=== PATIENT | female | born 1985 | race Hispanic/Latino ===

== ENCOUNTER 2018-04-07 23:10 | Inpatient (IN) | payer BC ==
[2018-04-07] MEDS ORDERED: AMPicillin 2 GM in Sodium Chloride 0.9% 100 ML IVPB ONE (23:15)
[2018-04-07 23:26] VITALS: BMI 25.7
[2018-04-08] MEDS ORDERED: AMPicillin 2 GM in Sodium Chloride 0.9% 100 ML IVPB ONE (00:32)
[2018-04-08] MEDS ORDERED: Oxycodone/Acetaminophen 5/325 mg Tab PO PRN ×2 (00:32→03:10)
[2018-04-08 01:13] LABS: BASO # 0.1 K/uL (0.0-0.2); BASO % 0.3 % (0.0-2.0); EOS % 0.2 % (0.0-4.0); HEMOGLOBIN 13.4 g/dL (12.0-16.0); LYMPH # 1.8 K/uL (1.0-4.3); LYMPH % 10.5 % (20.0-40.0); MEAN CELL VOLUME 94.4 fl (81.0-99.0); MEAN CORPUSCULAR HEMOGLOBIN 33.5 pg (27.0-31.0); MEAN CORPUSCULAR HGB CONC 35.5 g/dL (33.0-37.0); MEAN PLATELET VOLUME 9.4 fl (7.2-11.7); MONO # 1.1 K/uL (0.0-0.8); MONO % 6.1 % (0.0-10.0); NEUT # 14.2 K/uL (1.8-7.0); NEUT % 82.9 % (50.0-75.0); NRBC % 0.1 % (0.0-0.0); RBC 3.99 Mil/uL (3.80-5.20); RED CELL DISTRIBUTION WIDTH 13.1 % (11.5-14.5); WHITE BLOOD COUNT 17.1 K/uL (4.8-10.8)
[2018-04-08 03:04] VITALS: O2SAT 99
[2018-04-08 07:14] LABS: BASO % 0.1 % (0.0-2.0); HEMOGLOBIN 11.5 g/dL (12.0-16.0); LYMPH % 6.3 % (20.0-40.0); MEAN CELL VOLUME 93.4 fl (81.0-99.0); MEAN CORPUSCULAR HEMOGLOBIN 33.3 pg (27.0-31.0); MEAN CORPUSCULAR HGB CONC 35.7 g/dL (33.0-37.0); MEAN PLATELET VOLUME 9.2 fl (7.2-11.7); MONO # 0.9 K/uL (0.0-0.8); MONO % 5.8 % (0.0-10.0); NEUT # 14.2 K/uL (1.8-7.0); NEUT % 87.8 % (50.0-75.0); PLATELET COUNT 212 K/uL (130-400); RBC 3.44 Mil/uL (3.80-5.20); RED CELL DISTRIBUTION WIDTH 12.8 % (11.5-14.5); WHITE BLOOD COUNT 16.2 K/uL (4.8-10.8)
[2018-04-08 10:24] LABS: LYMPHOCYTE 6 % (20-50); MONOCYTE 6 % (0-10); NEUTROPHIL 88 % (42-75); PLATELET ESTIMATE NORMAL (NORMAL); TOTAL CELLS COUNTED 100
[2018-04-08 10:35] LABS: LARGE PLATELETS PRESENT
[2018-04-08 10:36] LABS: GIANT PLATELETS PRESENT
[2018-04-08 10:37] LABS: TOXIC GRANULATION PRESENT
--- NOTE | 2018-04-08 14:03 | OBHP ---
Datetime: 04/07/2018 23:00 IP Adm Impression: Term, intrauterine ; Active labor; Intact Membranes IP Admit Plan: Admit to unit; Initiate labor protocol Admit Comment, IP Provider: 32 yo , at 41+0 EGA by certain LMP. NKDA, GBS positive. HIV/RPR?Hep B negative, maternal blood type O negative. HPI: Patient began having uterine contractions around 1730 on 04/07/18 with increasing intensity an d frequency. Patient denies loss of fluid, reports bloody show, good movement. Pelvic Type - PN: Adequate Extremities - PN: Normal Abdomen - PN: Normal Back - PN: Normal Breast - PN: Normal Lungs - PN: Normal Heart - PN: Normal Thyroid - PN: Normal Neurologic - PN: Normal HEENT - PN: Normal General - PN: Normal Amniotic Fluid Color, Provider: Meconium, Light Membranes, Provider: Ruptured Gestation - Est Wks by US: 41.0 Vital Signs Provider: Reviewed; Within Normal Limits IP Chief Complaint: Uterine contractions FHR Category Provider Fetus A: Category I Dilatation, Provider: 10 Effacement, Provider: 100 Station, Provider: 1 Genitourinary Exam: Normal DTRs - PN: Normal
--- NOTE | 2018-04-08 14:11 | OBDS ---
DELIVERY PERSONNEL Nurse Corporate Recruiter Certified: Rosy Roque CNM (Annotations: Data stored by CPN on behalf of user) Batch Dumper: Alexandra RN, Ebony RN MATERNAL INFORMATION Delivery Anesthesia: Local Medications in Delivery: None Estimated Blood Loss (ml): 250 Placenta Cultured: Placenta Released to patient , release form signed Maternal Complications: Precipitous Labor (<3hrs) (Annotations: Data stored by CPN on behalf of user ) Provider Comments: Efficient labor at home, presented to [facility] fully dilated, with SROM upon admissio n, light mec. viable baby girl @ 23:37 over intact perineum, maternal right side laying position . Baby born in VAL with compound presentation with right hand. Spontaneous cry, good color and tone. Delayed cord clamping >2 mins. Cord clamped and baby brought to warmer for evaluation by pediatric hyun per protocol for meconium. Placenta delivered spontaneously and intact. 3VC. EBL 250 mL, uterus firm following massage. Right periclitoral lac repaired with 3-0 Vicryl on SH suture. Left perineal laceration repaired with 3-0 Vicryl, interrupted sutures. Well approximated. Topical lidocaine crea m 1% and lidocaine inj. Baby on maternal chest for [id number] and bonding. LABOR SUMMARY EDC: 04/04/2018 00:00 No. Babies in Womb: 1 Attempted: No Labor Anesthesia: Local LABOR INFORMATION Reason for Induction: Not Applicable Onset of Labor: 04/07/2018 18:00 Complete Dilatation: 04/07/2018 23:00 Oxytocin: N/A Group B Beta Strep: Positive Antibiotics # of Doses: 1 Antibiotics Time of Last Dose: 2315 Steroids Given: None Reason Steroids Not Administered: Not Applicable MEMBRANES Membranes Rupture Method: Spontaneous Rupture of Membranes: 04/07/2018 22:50 Length of Rupture (hrs): 0.62 Amniotic Fluid Color: Heavy Meconium Amniotic Fluid Amount: Moderate Amniotic Fluid Odor: Normal STAGES OF LABOR Stage 1 hrs: 5 Stage 1 min: 0 Stage 2 hrs: 0 Stage 2 min: 27 Stage 3 hrs: 0 Stage 3 min: 12 Total Time in Labor hrs: 5 Total Time in Labor min: 39 VAGINAL DELIVERY Episiotomy: None Laceration Extension: First Degree Laceration Type: Perineal Other Laceration: right periclitoral Laceration Repair: Yes Laceration Repair Note: See provider comments Initial Vag Sponge Count: 5 Final Vag Sponge Count: 5 Initial Vag Sharps Count: 2 Final Vag Sharps Count: 2 Sponge Count Correct: Yes Sharps Count Correct: Yes Count Comment: Laps 5 Instruments 15 sharps 2 BABY A INFORMATION Infant Delivery Date/Time: 04/07/2018 23:27 Method of Delivery: Vaginal Born in Route : No : N/A Forceps: N/A Vacuum Extraction: N/A Shoulder Dystocia : No SHOULDER DYSTOCIA BABY A Delivery Date/Time: 04/07/2018 23:27 PRESENTATION/POSITION BABY A Presentation: Compound Cephalic Presentation: Vertex Breech Presentation: N/A PLACENTA INFORMATION BABY A Placenta Delivery Time : 04/07/2018 23:39 Placenta Method of Delivery: Spontaneous Placenta Status: Delivered SCORES BABY A Heart Rate 1 min: >100 bpm Resp Effort 1 min: Good Cry Reflex Irritability 1 min: Cough or Sneeze or Pulls Away Muscle Tone 1 min: Active Motion Color 1 min: Body [place], Extremities Blue Resuscitation Effort 1 min: Tactile Stimulation SCORE 1 MIN: 9 Heart Rate 5 min: >100 bpm Resp Effort 5 min: Good Cry Reflex Irritability 5 min: Cough or Sneeze or Pulls Away Muscle Tone 5 min: Active Motion Color 5 min: Body [place], Extremities Blue Resuscitation Effort 5 min: N/A SCORE 5 MIN: 9 INFANT INFORMATION BABY A Gestational Age at Delivery: 40.3 Gestational Status: Term Infant Outcome : Liveborn Condition : Stable Sex: Female IDENTIFICATION/MEDS BABY A ID Band Number: [id number] ID Band Location: Left Leg; Left Arm Vitamin K Given : Left Thigh Erythromycin Given: Deferred by Parents WEIGHT/LENGTH BABY A Birthweight (gms): 3225 Infant Weight (lb): 7 Infant Weight (oz): 2 CORD INFORMATION BABY A No. Cord Vessels: 3 Nuchal Cord : N/A Cord Blood Taken: Yes Infant Suction: Mouth; Nose ASSESSMENT BABY A Infant Complications: Meconium Physical Findings at Delivery: Within Normal Limits Infant Respirations: Appears Normal Architectural Representative/ALS Called : No Care By: Dr. Connor Transferred To: Remains with Mother
--- NOTE | 2018-04-08 14:50 | OBPPN ---
Datetime: 04/08/2018 14:46 PP Pain Prov: Within normal limits PP Nausea Prov: Denies PP Flatus Prov: Yes PP BM Prov: No PP Breasts Prov: Normal PP Heart Prov: Normal PP Lungs Prov: Normal PP Abdomen/Uterus Prov: Normal PP Lochia Prov: Normal PP Vulva/Perineum Prov: Normal PP CVA Tenderness Prov: Normal PP Extremities Prov: Normal PP Progress Prov: Normal PP Impression Prov: Normal progression PP Plan Prov: Continue present management; Discharge PP Plan Other Prov: Discharge tomorrow. PP Progress Note Prov: Doing well . Ibuprofen for pain. Voids frequently, good PO intake of fluid/food. Denies emotional concerns. Bleeding decreasing, occasional uterine cramping. IP PP Procedures: Rhogam Vital Signs Provider PP: Reviewed; Within Normal Limits
--- NOTE | 2018-04-08 14:53 | OBDCSUM ---
Datetime: 04/08/2018 14:50 Discharged to, Provider: Home Follow up at, Provider: [facility] [place] Disch Instr Activity: Normal activity Disch Instr Diet: Regular Discharge Instructions, Provider: Routine instructions given Discharge Diagnosis, Provider: Term Delivered Follow up in weeks, Provider: 1 week and 6 weeks Disch Referrals: None Contraception discussed, Prov: Yes Disch Activity Restrictions: No lifting; No driving; No sexual activity; Nothing in vagina - Interco urse, tampons, douche Discharge Comment, Provider: Reviewed normal signs and symptoms and when to call with con cerns or questions. Contraception after Delivery: Undecided
[2018-04-09 23:45] VITALS: BP 108/72; PULSE 85; RESP 20; TEMP 98.2
== END 2018-04-09 12:50 | disposition home or self-care (01) | DRG 806 ==
LOC: H.EROB2 23:10 → H.L&D 23:24 → H.OB/GYN 04-08 02:40
PROVIDERS: ADMIT Family Medicine; ATTEND Family Medicine
PROC: 10E0XZZ Delivery of Products of Conception, External Approach (ICD-10-PCS; principal; 2018-04-07)
PROC: 0HQ9XZZ Repair Perineum Skin, External Approach (ICD-10-PCS; 2018-04-07)
PROC: 4A1HXCZ Monitoring of Products of Conception, Cardiac Rate, External Approach (ICD-10-PCS; 2018-04-07)
PROC: 3E0334Z Introduction of Serum, Toxoid and Vaccine into Peripheral Vein, Percutaneous Approach (ICD-10-PCS; 2018-04-08)
DX: O48.0 Post-term pregnancy (principal); O36.0930 Maternal care for other rhesus isoimmunization, third trimester, not applicable or unspecified; O70.0 First degree perineal laceration during delivery; O32.6XX0 Maternal care for compound presentation, not applicable or unspecified; O77.0 Labor and delivery complicated by meconium in amniotic fluid; Z37.0 Single live birth; Z3A.40 40 weeks gestation of pregnancy; O99.824 Streptococcus B carrier state complicating childbirth